=== PATIENT | male | born 1930 | race Caucasian/White ===

== ENCOUNTER 2020-01-03 11:49 | Emergency (ER) | payer OTHER ==
[~2020-01-03] VITALS: Ht 175.3 cm; Wt 63.5 kg
[2020-01-03] MEDS ORDERED: SODIUM CHLORIDE 0.9% 1,000 ML IVB ONE (12:01)
[2020-01-03] MEDS ORDERED: [UNRECOGNIZED DRUG - CODE] PO (12:13)
[2020-01-03] MEDS ORDERED: CEPH500C PO (12:13)
[2020-01-03] MEDS ORDERED: CAR3125T PO (12:13)
[2020-01-03] MEDS ORDERED: TRAM50TA2 PO (12:13)
[2020-01-03] MEDS ORDERED: DABI150C5 PO (12:13)
[2020-01-03] MEDS ORDERED: DILT60TA27 PO (12:13)
[2020-01-03 13:41] LABS: Urine Bacteria NONE SEEN /hpf (None Seen); Urine Blood Negative /uL (Negative); Urine Mucus FEW (None Seen); Urine Specific Gravity 1.015 (1.001-1.035); Urine WBC 1 /hpf (0 - 3)
[2020-01-03 13:45] LABS: Hematocrit 41.8 % (41.0-53.0); Mean Corpuscular Hemoglobin 29.5 pg (28.0-32.0); Mean Corpuscular Hgb Conc. 33.5 g/dL (32.0-36.0); Mean Corpuscular Volume 88.2 fL (80.0-100.0); Platelet Count (auto) 92 10^3/uL (140-450); Red Blood Cells 4.74 10^6/uL (4.5-5.90); Red Cell Distribution Width 16.4 % (11.8-14.3); White Blood Cell 7.2 10^3/uL (4.4-10.8)
[2020-01-03 13:48] LABS: Basophils % (manual) 0 (0.0-2.0); Blast Cells 0; Myelocytes % 0; Promyelocytes % 0; Reactive Lymphocytes 0
[2020-01-03 13:50] LABS: INR 1.84 (0.9-1.15); Partial Thromboplastin Time 64.3 sec (23.64-32.05)
[2020-01-03 13:58] LABS: Albumin 3.2 g/dL (3.4-5.0); Anion Gap 5 (5-15); Blood Urea Nitrogen 17 mg/dL (7-18); Carbon Dioxide 26 mmol/L (21-32); Chloride 109 mmol/L (98-107); Glucose 91 mg/dL (74-106); Magnesium 2.2 mg/dL (1.6-2.6); Potassium 3.9 mmol/L (3.5-5.1); Sodium 140 mmol/L (136-145)
[2020-01-03] MEDS ORDERED: DIGOXIN (250MCG/ML) 2 ML AMPULE IV ONE (14:00)
[2020-01-03 14:01] LABS: Band Neutrophils % (manual) 2; Eosinophils % (manual) 1 (0-7); Lymphocytes % (manual) 33 (10.0-50.0); Metamyelocytes % 1; Monocytes % (manual) 15 (0-12)
[2020-01-03 14:06] LABS: Alanine Aminotransferase 19 U/L (16-61); Alkaline Phosphatase 88 U/L (45-117); Aspartate Aminotransferase 19 U/L (15-37); BUN/Creatinine Ratio 20.2; Bilirubin, Total 0.9 mg/dL (0.2-1.0); GFR African American 111 mL/min; GFR Non-African American 92 mL/min; Total Protein 6.3 g/dL (6.4-8.2)
[2020-01-03] MEDS ORDERED: dilTIAZem 25 MG/5 ML VIAL IV ONE (15:30)
[2020-01-03 19:00] VITALS: BP 131/96
== END 2020-01-03 17:13 | disposition short-term general hospital (02) ==
LOC: ER 11:49 → EDBD 11:49 → ER 17:13
DX: I48.0 Paroxysmal atrial fibrillation (principal); R55 Syncope and collapse; D69.6 Thrombocytopenia, unspecified; I10 Essential (primary) hypertension; E78.5 Hyperlipidemia, unspecified; Z79.899 Other long term (current) drug therapy
CPT/HCPCS: 36415; 70450; 71045; 80053; 81001; 83735; 84484; 85007; 85027; 85610; 85730; 93005

== ENCOUNTER 2020-02-17 09:08 | Emergency (ER) | payer OTHER ==
[~2020-02-17] VITALS: Ht 175.3 cm; Wt 63.5 kg
[~2020-02-17 09:08] MED LIST: CAR3125T PO; CEPH500C PO; DABI150C5 PO; DILT60TA27 PO; TRAM50TA2 PO; [UNRECOGNIZED DRUG - CODE] PO
[2020-02-17 09:52] LABS: Hematocrit 43.8 % (41.0-53.0); Hemoglobin 14.4 g/dL (13.5-17.5); Mean Corpuscular Hemoglobin 28.8 pg (28.0-32.0); Mean Corpuscular Hgb Conc. 32.8 g/dL (32.0-36.0); Mean Corpuscular Volume 87.7 fL (80.0-100.0); Platelet Count (auto) 69 10^3/uL (140-450); Red Cell Distribution Width 16.4 % (11.8-14.3); White Blood Cell 8.1 10^3/uL (4.4-10.8)
[2020-02-17 10:02] LABS: Band Neutrophils % (manual) 0; Basophils % (manual) 0 (0.0-2.0); Blast Cells 0; Eosinophils % (manual) 0 (0-7); Metamyelocytes % 0; Myelocytes % 0; Promyelocytes % 0; Reactive Lymphocytes 0
[2020-02-17 10:13] LABS: Albumin 3.5 g/dL (3.4-5.0); Anion Gap 4 (5-15); Blood Urea Nitrogen 14 mg/dL (7-18); Calcium 9.2 mg/dL (8.5-10.1); Carbon Dioxide 29 mmol/L (21-32); Chloride 108 mmol/L (98-107); Glucose 84 mg/dL (74-106); Magnesium 2.3 mg/dL (1.6-2.6); Potassium 4.4 mmol/L (3.5-5.1); Sodium 141 mmol/L (136-145)
[2020-02-17 10:19] LABS: Alanine Aminotransferase 40 U/L (16-61); Alkaline Phosphatase 102 U/L (45-117); Aspartate Aminotransferase 32 U/L (15-37); BUN/Creatinine Ratio 14.1; Bilirubin, Total 0.8 mg/dL (0.2-1.0); GFR African American 92 mL/min; GFR Non-African American 76 mL/min; Total Protein 6.9 g/dL (6.4-8.2)
[2020-02-17 10:37] LABS: Lymphocytes % (manual) 22 (10.0-50.0)
[2020-02-17 10:38] LABS: Monocytes % (manual) 23 (0-12)
[2020-02-17 11:36] LABS: Urine Bacteria NONE SEEN /hpf (None Seen); Urine Blood Negative /uL (Negative); Urine Hyaline Cast FEW /lpf (0 - 2); Urine Specific Gravity 1.012 (1.001-1.035); Urine WBC <1 /hpf (0 - 3)
[2020-02-17 13:20] VITALS: BP 101/56
== END 2020-02-17 14:17 | disposition home or self-care (01) ==
LOC: EDBD 09:08 → ER 09:08
DX: I95.9 Hypotension, unspecified (principal); E86.0 Dehydration; E78.5 Hyperlipidemia, unspecified; I48.91 Unspecified atrial fibrillation
CPT/HCPCS: 36415; 71045; 80053; 81001; 83735; 84484; 85007; 85027; 93005